=== PATIENT | female | born 1940 | race Caucasian/White ===

== ENCOUNTER 2016-08-11 21:47 | Emergency (ER) | payer OTHER ==
[~2016-08-11] VITALS: Ht 149.9 cm; Wt 62.1 kg
[2016-08-11 21:51] VITALS: BP_SYST 135
[2016-08-12 00:09] VITALS: BP_SYST 135
== END 2016-08-12 00:09 | disposition home or self-care (01) ==
LOC: SED 21:47
DX: S00.03XA Contusion of scalp, initial encounter (principal); Z88.0 Allergy status to penicillin; W22.03XA Walked into furniture, initial encounter; Y93.89 Activity, other specified; Y92.89 Other specified places as the place of occurrence of the external cause; Y99.8 Other external cause status
CPT/HCPCS: 70450-TC; 99284

== ENCOUNTER 2017-08-23 16:55 | Emergency (ER) | payer OTHER ==
[~2017-08-23] VITALS: Ht 152.4 cm; Wt 62.6 kg
[2017-08-23 16:58] VITALS: BP_SYST 108
[2017-08-23] MEDS ORDERED: NACL 0.9% 1,000 ML IV ONE (17:30)
[2017-08-23 18:05] LABS: RED BLOOD CELL COUNT(AUTO) 3.69 MIL/uL (4.2-6.2); WHITE BLOOD COUNT (AUTO) 10.1 K/uL (4.8-10.8)
[2017-08-23 18:06] LABS: BASOPHILS % (AUTO) 0.4 % (0.0-2.0); EOSINOPHILS # (AUTO) 0.2 K/uL (0.0-0.4); EOSINOPHILS % (AUTO) 1.5 % (0.0-4.0); HEMOGLOBIN 11.9 g/dL (12.0-16.0); LYMPHOCYTES # (AUTO) 1.7 K/uL (1.0-5.5); LYMPHOCYTES % (AUTO) 16.6 % (20.5-51.5); MEAN CORPUSCULAR HEMOGLOBIN 32 pg (27-31); MEAN CORPUSCULAR HGB CONC 34 % (32-36); MEAN CORPUSCULAR VOLUME 95 fL (79.0-98.0); MONOCYTES # (AUTO) 0.5 K/uL (0.0-1.0); MONOCYTES % (AUTO) 5.3 % (1.7-9.3); NEUTROPHILS # (AUTO) 7.7 K/uL (1.8-7.7); NEUTROPHILS % (AUTO) 76.2 % (40.0-70.0); PLATELET COUNT (AUTO) 207 K/uL (130-430); RED CELL DISTRIBUTION WIDTH 13.6 % (9.0-15.0)
[2017-08-23 18:07] LABS: ANION GAP 6 (5-15); CALCIUM 9.3 mg/dL (8.4-11.0); CHLORIDE 100 mmol/L (98-107); CREATININE 1.57 mg/dL (0.55-1.30); GLUCOSE 100 mg/dL (70-99); POTASSIUM 4.8 mmol/L (3.5-5.1); SODIUM SERUM 132 mmol/L (136-145); UREA NITROGEN, BLOOD 29 mg/dL (8-21)
[2017-08-23 18:12] LABS: ALANINE AMINOTRANSFERASE 26 U/L (12-78); ALBUMIN 3.5 g/dL (3.4-4.8); ASPARTATE AMINOTRANSFERASE 25 U/L (10-37); TOTAL BILIRUBIN 0.4 mg/dL (0.0-1.0)
[2017-08-23 19:20] VITALS: BP_SYST 120
== END 2017-08-23 19:20 | disposition home or self-care (01) ==
LOC: SED 16:55
DX: E86.0 Dehydration (principal); I25.2 Old myocardial infarction; F41.9 Anxiety disorder, unspecified; E78.00 Pure hypercholesterolemia, unspecified; F32.9 Major depressive disorder, single episode, unspecified; Z95.9 Presence of cardiac and vascular implant and graft, unspecified; Z88.0 Allergy status to penicillin
CPT/HCPCS: 36415; 72170; 80053; 82550; 83880; 84484; 85025; 93005; 96360; 99285; J7030

== ENCOUNTER 2018-07-11 15:33 | Emergency (ER) | payer OTHER ==
[~2018-07-11] VITALS: Ht 152.4 cm; Wt 53.1 kg
[2018-07-11] MEDS ORDERED: NACL 0.9% 1,000 ML IV ONE (15:40)
--- NOTE | 2018-07-11 15:40 | NUR ---
Arrived via [facility] with compliant of syncopal episode after feeling like she needed to have a bowel movement. Patient reports that she had diarrhea 4 days ago and took lomitl, she felt like it was back. Placed in room 3 . Placed on phototypesetting equipment monitor, blood pressure machine and pulse oximeter. To gown for exam. Side rails up. Report given to Prieto RUGGIERO.
[2018-07-11 15:43] VITALS: BP_SYST 143
[2018-07-11] MEDS ORDERED: ASPIRIN 81 MG TAB.CHEW PO ONE (15:45)
[2018-07-11] MEDS ORDERED: ONDANSETRON HCL 4 MG/2 ML VIAL IVP ONE (15:45)
--- NOTE | 2018-07-11 15:45 | NUR ---
Patient brought in by [facility] transport on [facility] with 2 person team. Patient AOx4, verbal and ambulatory. Patient says the was shopping at a store when she felt light headed and fainted. Patient denies hitting head saying she sat down on her bottom. Patient is responding appropriately, PERRL, no other injuries or complaints at this time.
--- NOTE | 2018-07-11 15:50 | NUR ---
DR BHAT at bedside for ER evaluation
--- NOTE | 2018-07-11 16:20 | NUR ---
Medicated per MD orders. IVF infusing with no s/s of infiltration at this time. Will cont to monitor
[2018-07-11 16:38] LABS: BASOPHILS # (AUTO) 0.1 K/uL (0.0-0.2); BASOPHILS % (AUTO) 0.9 % (0.0-2.0); EOSINOPHILS # (AUTO) 0.2 K/uL (0.0-0.4); EOSINOPHILS % (AUTO) 1.8 % (0.0-4.0); HEMATOCRIT 38.5 % (36-48); HEMOGLOBIN 12.6 g/dL (12.0-16.0); LYMPHOCYTES # (AUTO) 2.4 K/uL (1.0-5.5); LYMPHOCYTES % (AUTO) 22.1 % (20.5-51.5); MEAN CORPUSCULAR HEMOGLOBIN 31 pg (27-31); MEAN CORPUSCULAR HGB CONC 33 % (32-36); MEAN CORPUSCULAR VOLUME 96 fL (79.0-98.0); MONOCYTES # (AUTO) 0.6 K/uL (0.0-1.0); MONOCYTES % (AUTO) 5.4 % (1.7-9.3); NEUTROPHILS # (AUTO) 7.4 K/uL (1.8-7.7); NEUTROPHILS % (AUTO) 69.8 % (40.0-70.0); PLATELET COUNT (AUTO) 224 K/uL (130-430); RED CELL DISTRIBUTION WIDTH 15.4 % (9.0-15.0); WHITE BLOOD COUNT (AUTO) 10.6 K/uL (4.8-10.8)
[2018-07-11 16:53] LABS: ANION GAP 10 (5-15); CALCIUM 9.7 mg/dL (8.4-11.0); CHLORIDE 104 mmol/L (98-107); CREATININE 1.33 mg/dL (0.55-1.30); GLUCOSE 100 mg/dL (70-99); POTASSIUM 4.4 mmol/L (3.5-5.1); SODIUM SERUM 136 mmol/L (136-145); UREA NITROGEN, BLOOD 22 mg/dL (8-21)
[2018-07-11 16:58] LABS: PROTHROMBIN TIME 10.2 SECS (9.5-12.5)
[2018-07-11 16:59] LABS: ALANINE AMINOTRANSFERASE 17 U/L (12-78); AMYLASE 203 U/L (0-100); ASPARTATE AMINOTRANSFERASE 24 U/L (10-37); TOTAL BILIRUBIN 0.4 mg/dL (0.0-1.0)
[2018-07-11 17:04] LABS: ALCOHOL, BLOOD < 3 mg/dL (<10)
[2018-07-11 17:08] LABS: ALBUMIN 3.3 g/dL (3.4-4.8); LIPASE 241 U/L (73-393)
--- NOTE | 2018-07-11 17:43 | NUR ---
Patient resting in bed, no signs of distress noted, awaiting orders, will continue to monitor.
[2018-07-11 18:39] VITALS: BP_SYST 97
--- NOTE | 2018-07-11 18:41 | NUR ---
Patient given written and verbal discharge instructions and verbalizes understanding. ER MD discussed with patient the results and treatment provided. Patient in stable condition. ID arm band removed. IV catheter removed intact and dressing applied, no active bleeding. NO Rx given. Patient educated on Syncope and to follow up with PMD. Pain Scale 0/10. Opportunity for questions provided and answered. Medication side effect fact sheet provided.
== END 2018-07-11 18:39 | disposition home or self-care (01) ==
LOC: SED 15:33
DX: R55 Syncope and collapse (principal); R03.0 Elevated blood-pressure reading, without diagnosis of hypertension; I25.2 Old myocardial infarction; F41.9 Anxiety disorder, unspecified; F32.9 Major depressive disorder, single episode, unspecified; E78.00 Pure hypercholesterolemia, unspecified; Z88.0 Allergy status to penicillin; Z85.41 Personal history of malignant neoplasm of cervix uteri
CPT/HCPCS: 36415; 70450; 71045; 80053; 82150; 82550; 83605; 83690; 84484; 85025; 85610; 85730; 87040; 93005; 96361; 96374; 99284; G0481; G0482; J2405